=== PATIENT | female | born 1965 | race American Indian/Alaskan Native ===

== ENCOUNTER 2022-01-28 12:08 | Emergency (ER) | payer SELFPAY ==
[2022-01-28] MEDS ORDERED: IBUPROFEN800 MG PO (18:27)
[2022-01-28] MEDS ORDERED: CYCLOBENZAPRINE10 MG PO (18:27)
== END 2022-01-28 18:55 | disposition home or self-care (01) ==
LOC: FER 12:08
DX: M25.552 Pain in left hip (principal); E11.9 Type 2 diabetes mellitus without complications; Z79.84 Long term (current) use of oral hypoglycemic drugs
CPT/HCPCS: 72192; 73502